=== PATIENT | male | born 1990 | race Caucasian/White ===

== ENCOUNTER 2017-06-10 08:12 | Emergency (ER) | payer SELFPAY ==
[2017-06-10 08:36] LABS: Bilirubin Moderate (Negative); Blood, Urine Trace (Negative); Glucose, Urine (Dipstick) Negative (Negative); Ketone, Urine 40 mg/dL (Negative); Nitrite Negative (Negative); Protein, Urine (Dipstick) 30 mg/dL (Neg-Trace)
[2017-06-10 08:44] LABS: Bacteria/HPF 2+ HPF (None Seen); RBC/HPF 0-3 HPF (0-3); Squamous Epithelial None Seen HPF (0-3); WBC/HPF None Seen HPF (0-3)
[2017-06-10] MEDS ORDERED: Ketorolac Tromethamine 30 MG/ML VIAL ONE (08:55)
[2017-06-10 08:58] LABS: #Basophils 0.1 thou/uL (0.0-0.2); #Lymphocytes 1.8 thou/uL (1.20-3.40); #Monocytes 1.6 thou/uL (0.11-0.59); #Neutrophils 13.5 thou/uL (1.40-6.50); %Basophils 0.4 % (0.0-1.0); %Eosinophils 0.1 % (0.0-10.0); %Lymphocytes 10.6 % (21.0-51.0); %Monocytes 9.4 % (0.0-10.0); Hematocrit 50.6 % (42.0-52.0); Red Blood Cell (RBC) Count 5.54 mill/uL (4.70-6.10)
[2017-06-10] MEDS ORDERED: Morphine 4 MG/ML Carpuject ONE (09:00)
[2017-06-10] MEDS ORDERED: Morphine 2 MG/ML SYRINGE ONE (09:00)
[2017-06-10 09:13] LABS: ALT (SGPT) 31 U/L (8-55); AST (SGOT) 17 U/L (5-34); Alkaline Phosphatase 62 U/L (40-150); Anion Gap 14 mmol/L (10-20); BUN (Urea Nitrogen) 11 mg/dL (8.9-20.6); Bilirubin, Total 0.7 mg/dL (0.2-1.2); CK (CPK) 220 U/L (30-200); Calc. Creatinine Clearance 0 mL/min (70-130); Calcium 8.9 mg/dL (7.8-10.44); Carbon Dioxide 26 mmol/L (22-29); Chloride 100 mmol/L (98-107); Estimated GFR-MDRD 54; Globulin 3.2 g/dL (2.4-3.5); Protein, Total 7.3 g/dL (6.0-8.3)
--- NOTE | 2017-06-10 11:21 | CT ---
ABDOMEN AND PELVIC CT SCAN WITHOUT IV CONTRAST: Date: 06/10/17 HISTORY: 26-year-old male with bilateral flank pain and hematuria. Low back pain. Fever. Vomiting and diarrhe a. FINDINGS: There is some very minimal patchy ground-glass opacity changes in the left lower lobe. This is nonsp ecific but could possibly represent some very minimal or early pneumonitis without significant confl uent pneumonia. The liver, gallbladder, pancreas, spleen, and adrenal glands are unremarkable. No re nal calculus or acute obstruction. Normal appearing appendix. No bowel obstruction, abscess, em opathy, or abnormal fluid collection within the abdomen or pelvis. IMPRESSION: Some very subtle ground-glass opacity changes in the left lower lobe, nonspecific, but this could po ssibly represent some very minimal or early pneumonitis. No significant acute process in the abdomen or pelvis. No renal calculus or obstruction. Normal appearing appendix. POS: [facility]
== END 2017-06-10 11:48 | disposition home or self-care (01) ==
LOC: SCSER 08:12
DX: A08.4 Viral intestinal infection, unspecified (principal)
CPT/HCPCS: 74176; 80053; 81003; 81015; 82550; 85025; 96361; 96374; 96375; J1885; J2270